=== PATIENT | male | born 1965 | race Caucasian/White ===

== ENCOUNTER 2018-08-12 08:10 | Day surgery (SDC) | payer OTHER ==
[2018-08-12] MEDS ORDERED: PROPOFOL 10 MG/ML VIAL IV ONE (08:11)
[2018-08-12] MEDS ORDERED: LIDOCAINE 2% MDV (20MG/ML) 20ML VIAL IV ONE (08:11)
--- NOTE | 2018-08-12 11:30 | Operative Note ---
DATE OF SURGERY: 08/12/2018 OPERATION: COLONOSCOPY to the cecum with cold snare polypectomy x1. INDICATION: High-risk colorectal cancer screening in this gentleman with a paternal history of colon cancer. The patient's father and his father's brother (uncle) both from colon cancer at a young age. He presents today for the first time for high-risk screening colonoscopy. ANESTHESIA: Intravenous sedation was administered by the department of anesthesiology and included Diprivan titrated to effect. PROCEDURE: Following informed consent from this alert individual including a discussion of the risks and benefits of the procedure and an opportunity for the patient to ask questions, the patient was in the left lateral decubitus position. A digital rectal examination was performed. No abnormalities were noted. Following this, the Olympus [id number] video colonoscope was inserted into the rectum without resistance. The rectal mucosa had a normal appearance with normal folds and distensibility. The colonoscope was advanced up through the bowel to the level of the cecum without much difficulty. Throughout the bowel the mucosa appeared normal, the folds were normal, and the bowel was fairly well distensible. The cecum was defined by noting the appendiceal orifice and ileocecal valve. The colon preparation was good. From the base of the cecum, the colonoscope was then slowly withdrawn. No changes were noted until the descending colon was reached. In the distal descending colon, there was a 5 mm polyp noted which was removed with cold snare polypectomy and suctioned through the colonoscope into a collection trap. No other changes were noted. Retroflexion in the rectum was endoscopically normal. The instrument was straightened and removed. The patient tolerated the procedure well and was returned to the recovery area in stable condition. IMPRESSION: 1. A 5 mm descending colon polyp removed with cold snare polypectomy. 2. Otherwise unremarkable colonoscopy to the cecum. RECOMMENDATIONS: The patient will be advised to have recheck colonoscopy in 5 years' time for the finding of a polyp in his family history of colon cancer as described above. Followup will otherwise be with Gini Paez. As always, thank you for allowing me to participate in the care of your patient. CC: KRANTHI Benitez
== END 2018-08-12 10:00 | disposition home or self-care (01) ==
LOC: HOP 08:10
PROVIDERS: ATTEND Internal Medicine Gastroenterology
DX: Z12.11 Encounter for screening for malignant neoplasm of colon (principal); Z80.0 Family history of malignant neoplasm of digestive organs; D12.4 Benign neoplasm of descending colon; E78.00 Pure hypercholesterolemia, unspecified